=== PATIENT | male | born 2000 | race Caucasian/White ===

== ENCOUNTER 2023-08-21 14:43 | Emergency (ER) | payer OTHER, SELFPAY ==
[2023-08-21 14:55] VITALS: BP 131/88; PULSE 92; RESP 18; TEMP 37.6; O2SAT 100
[2023-08-21 14:56] VITALS: BP 131/88; PULSE 92; RESP 18; TEMP 37.6; O2SAT 100
--- NOTE | 2023-08-21 15:01 | ED.GENADULT ---
HPI - General Adult General Chief complaint: Nausea/Vomiting/Diarrhea Stated complaint: Nausea, Lack of Appetite Time Seen by Provider: 08/21/23 15:01 Source: patient, RN notes reviewed and old records reviewed Mode of arrival: ambulatory Limitations: no limitations History of Present Illness HPI narrative: 23-year-old male presents to the [facility] with complaints of nausea and decreased appetite that is been worsening over 1 month. Patient states that sometimes when he eats he gets nausea but no vomiting. Has not been eating as much consistent for he is going to get nauseous. Has not contacted his primary care provider for further evaluation. Has never been diagnosed with any type of eating disorder, abdominal issue. Has not taken any medications. Discussed with patient he should be keeping a food journal and no take when he does get nauseous. See if there is a pattern especially while eating a fried, greasy spicy or highly processed food. Encouraged him to follow-up with primary care provider or GI specialist. Explained to patient that we cannot do lab work year to check his nutritional values, blood work that that would be a primary care issue. Patient denies any abdominal pain, chest pain, shortness of breath. Denies any fevers. Onset (ago): month(s) (1) Related Data Home Medications Medication Instructions Recorded Confirmed No Home Medications 08/21/23 08/21/23 Allergies Allergy/AdvReac Type Severity Reaction Status Date / Time No Known Allergies Allergy Verified 08/21/23 14:55 Review of Systems Review of Systems: All systems reviewed & are unremarkable except as noted in HPI and below Constitutional: Constitutional: Reports no additional constitutional complaints Eyes: Eyes: Reports no additional eye complaints ENT: Reports system reviewed and no additional complaints, except as documented Cardiovascular: Cardiovascular: Reports no additional cardiovascular complaints, Denies chest pain and Denies dyspnea Respiratory: Respiratory: Reports no additional respiratory complaints, Denies chest congestion, Denies cough and Denies dyspnea Gastrointestinal: Gastrointestinal: Reports as per HPI, Denies abdominal pain, Reports nausea and Denies vomiting Musculoskeletal: Musculoskeletal: Reports no additional musculoskeletal complaints Integumentary/Breasts: Skin/Breast: Reports system reviewed and no additional complaints, except as docu Neurologic: Reports system reviewed and no additional complaints, except as documented Psychiatric: Psychiatric: Reports no additional psychiatric complaints Allergic/Immunologic: Allergic/Immunologic: Reports no additional allergic/immunologic complaints PMFSH Comments At the time of my signature, I reviewed and agree with the nursing past medical, surgical, social, and family history. There is no relevant family history pertinent to the patient complaint. Exam Const: General: cooperative, healthy appearing, comfortable, no acute distress, well developed, alert and well nourished Nutritional Appearance: well nourished Orientation/consciousness: patient oriented x3 Limitations: no limitations HENMT: Head: normal to inspection Ears: hearing grossly normal bilaterally and external ears normal Face/Nose/Sinus: Normal external nose present, Normal nares present, Normal nasal mucous membranes and turbinates present, normal facial exam and face symmetric Face and sinus: normal facial exam and face symmetric Mouth: Yes Normal oral and palatal mucosa present, Yes lip normal and Yes moist mucous membranes Throat: posterior oropharynx normal and uvula midline Eyes: General: appearance normal, both eyes and all related structures Alignment and Position: alignment normal Periorbital: periorbital findings normal Pupils: Equal, round and reactive pupils present EOM: EOMs intact bilaterally Neck: Neck: normal visual inspection, full ROM, no lymphadenopathy and no meningeal signs
== END 2023-08-21 15:22 | disposition home or self-care (01) ==
PROVIDERS: Emergency Provider Nurse Practitioner
DX: R11.0 Nausea (principal); R63.8 Other symptoms and signs concerning food and fluid intake
CPT/HCPCS: 99211; G0463